=== PATIENT | female | born 1980 | race African-American/Black ===

== ENCOUNTER 2018-03-17 10:59 | Emergency (ER) | payer BC ==
[~2018-03-17] VITALS: Ht 162.6 cm; Wt 68.2 kg
[2018-03-17 11:11] VITALS: BP 142/79; TEMP 98.8
[2018-03-17] MEDS ORDERED: FEMYNOR 28 TAB1 EACH PO (11:22)
[2018-03-17 13:25] VITALS: PULSE 80
== END 2018-03-17 13:25 | disposition home or self-care (01) ==
LOC: COL.ER 10:59
DX: T78.40XA Allergy, unspecified, initial encounter (principal)
CPT/HCPCS: J1100